=== PATIENT | male | born 1985 | race Caucasian/White ===

== ENCOUNTER → 2017-01-31 | Outpatient (CLI) | payer OTHER ==
[~2017-01-31] MED LIST: ACET-749 PO; AMPH20TA2 PO; TAMS0.4C38 PO
--- NOTE | 2017-01-31 14:32 | DIAGNOSTIC IMAGING REPORT ---
KUB HISTORY: 31 years-old Male NEPHROLITHIASIS N20.0 COMPARISON: KUB 01/19/2016 TECHNIQUE: Frontal view of the abdomen FINDINGS: 5 mm calculus projecting over the inferior pole left kidney is again noted, unchanged. No additional urolithiasis identified. Calcification of the right hemipelvis suggests phleboliths. No calculi are seen along the course of either ureter. The bowel gas pattern is nonobstructive. Bones appear intact without fracture or significant degenerative changes. IMPRESSION: 5 mm calculus of the inferior pole left kidney is unchanged. No additional urolithiasis identified. The above report was generated using voice recognition software. It may contain grammatical, syntax or spelling errors. Electronically signed by: Pato Jeronimo M.D. 01/31/2017 2:31 PM Dictated Date/Time: 01/31/2017 2:29 PM
== END | disposition home or self-care (01) ==
LOC: C.RAD 14:03
PROVIDERS: ATTEND Family Medicine
DX: N20.0 Calculus of kidney (principal)